=== PATIENT | male | born 1950 | race Two or more races ===

== ENCOUNTER 2024-12-03 10:49 | Emergency (ER) | payer MEDICARE, BC, SELFPAY ==
[2024-12-03] VITALS (8 sets, daily range): BP systolic 86–176; BP diastolic 13–85; BMI 23.8
[2024-12-03 11:29] LABS: % Basophils 0.3 % (0-2); % Eosinophils 2.1 % (0-6); % Immature Granulocytes 0.5 % (0-0.5); % Lymphocytes 22.6 % (20.5-51.1); % Monocytes 6.4 % (1.7-9.3); % Neutrophils 68.1 % (42.2-75.2); Absolute Eosinophils 0.1 10^3/uL (0-0.7); Absolute Lymphocytes 1.3 10^3/uL (1.2-3.4); Absolute Monocytes 0.4 10^3/uL (0.1-0.6); Absolute Neutrophils 3.9 10^3/uL (1.4-6.5); Hematocrit 35.1 % (39.0-52.0); Hemoglobin 11.4 g/dL (13.0-18.0); Mean Corp Hgb Conc. 32.5 g/dL (33.0-37.0); Mean Corpuscular Hgb 23.5 pg (27.0-31.0); Mean Corpuscular Volume 72.2 fL (80.0-94.0); Nucleated Red Blood Cells % 0 % (-); Platelet Count 140 10^3/uL (130-400); Red Blood Cell Count 4.86 10^6/uL (4.70-6.10); Red Cell Dist. Width 17.8 % (11.5-14.5); White Blood Cell Count 5.8 10^3/uL (4.8-10.8)
[2024-12-03 11:47] LABS: Alkaline Phosphatase 79 U/L (38-126); Blood Urea Nitrogen 19 mg/dl (9-20); Calcium 9.1 mg/dl (8.4-10.2); Carbon Dioxide 24 mmol/L (22-30); Chloride 101 mmol/L (98-107); Glucose 213 mg/dl (70-99); Potassium 3.7 mmol/L (3.5-5.1); Sodium 134 mmol/L (135-145); eGFR > 60.00
[2024-12-03 11:48] LABS: ALT (SGPT) 23 U/L (0-50); AST (SGOT) 20 U/L (17-59); Albumin 4.1 g/dl (3.5-5.0); Total Bilirubin 0.9 mg/dl (0.2-1.3); Total Protein 6.8 g/dl (6.3-8.2)
[2024-12-03 12:09] LABS: Troponin I < 0.012 ng/ml
[2024-12-03 12:27] LABS: Lipase 469 U/L (23-300)
--- NOTE | 2024-12-03 12:30 | ED.GENMED ---
History of Present Illness
<Bernice Russell PRINCIPAL TRAINER - Last Filed: 12/04/24 18:39>
General
Chief Complaint: Breathing Problem
Source: patient
Exam Limitations: none
Time Seen by Provider: 12/03/24 12:11
Nursing documentation reviewed up to this point in time: agreed with except (Patient is not here for a breathing problem he is here because he has been pain across his upper abdomen, when it was worse earlier this morning he felt short of breath,
this has completely subsided)
History of Present Illness
History of Present Illness:
74 yo male with h/o HLD, NIDDM, Moy[place] surgery 2015 and 2016 presents for pain across upper abdomen. Pain started gradually at 9 a.m. while in latter-day, was belching 'a lot' to the point he was embarrassed. [place] nauseous but no vomiting. Pain was
05/05 from latter-day and all the way home. Took something like Staci Dundee with some relief. Pain now /10. Denies fever, diarrhea or constipation.
He did eat dinner out last night and had a 'big rib eye steak.'
Review of Systems
<Bernice Russell PRINCIPAL TRAINER - Last Filed: 12/04/24 18:39>
Review of Systems
Allergies reviewed?: Yes
All Other Systems: ROS reviewed and negative except as documented in HPI and ROS
Constitutional: Denies fever
Respiratory: Denies trouble breathing
Cardiac: Denies chest pain
ABD/GI: Reports abdominal pain and nausea (belching ); Denies vomiting, diarrhea or anorexia
: Denies dysuria, frequency or difficulty voiding
Musculoskeletal: Reports no symptoms
Skin: Reports no symptoms
Neurological: Reports no symptoms
Phy Exam
<Bernice Russell, PRINCIPAL TRAINER - Last Filed: 12/04/24 18:39>
Physical Exam
Physical Exam:
GENERAL: No acute distress. A&Ox3.
CONSTITUTIONAL: Afebrile.
EYES: clear, conjunctivae normal
ENMT: moist mucus membranes
RESPIRATORY: Regular respirations, nonlabored, lungs clear.
CARDIOVASCULAR: Regular rate and rhythm, no murmurs, no rubs.
GI: Soft, mild tenderness mid to right upper abdomen. Nondistended. Normal BS
MUSCULOSKELETAL: Moves with ease. Well perfused.
SKIN: Warm, dry, normal
PSYCH: Normal mood and affect. Well kept, interactive and appropriate
NEUROLOGIC: Awake, alert and oriented. No focal neurological deficits
Scores
<Carlos Manuel Fonseca PA-C - Last Filed: 12/03/24 20:30>
Heart Failure Risk
Heart Failure Risk Score: Not Applicable
Course
<Bernice Russell PRINCIPAL TRAINER - Last Filed: 12/04/24 18:39>
Orders/Labs/Results
Orders:
Orders
12/03/24 10:51
EKG [Electrocardiogram (*1)] Urgent
Reason for Study: Shortness of Breath
EKG- Treatment ONCE
12/03/24 11:06
Complete Blood Count/With Diff Urgent
Comprehensive Metabolic Panel Urgent
Lipase Urgent
NT-proBNP Urgent
Comment: ADD ON
Troponin I Urgent
12/03/24 12:02
Add On- LAB Urgent
Tests Added?: Pro-BNP
12/03/24 12:29
US Abdomen Complete/Upper Urgent
Comment:
Reason For Exam: pain across upper abdomen mild elevat lipase
12/03/24 13:37
0.9% Sodium Chloride 1000 ml [Nss] 1,000 ml IV BOLUS
12/03/24 13:40
Iohexol [Omnipaque] See Protocol PO NOW STA
12/03/24 13:41
CT Abd/pel W Iv And Oral Contr Urgent
Comment:
Reason For Exam: pain across upper abdomen
Abnormal Lab Results
12/03/24
11:06
Hgb 11.4 L g/dL
(13.0-18.0)
Hct 35.1 L %
(39.0-52.0)
MCV 72.2 L fL
(80.0-94.0)
MCH 23.5 L pg
(27.0-31.0)
MCHC 32.5 L g/dL
(33.0-37.0)
RDW 17.8 H %
(11.5-14.5)
Sodium 134 L mmol/L
(135-145)
Glucose 213 H mg/dl
(70-99)
Lipase 469 H U/L
(23-300)
12/03/24 11:06
12/03/24 11:06
Vital Signs
Initial and Last Documented VS:
Initial Vital Signs
Temp Pulse Resp BP Pulse Ox
97.6 F 58 16 176/76 100
12/03/24 10:58 12/03/24 10:58 12/03/24 10:58 12/03/24 10:58 12/03/24 10:58
Last Documented Vital Signs
Temp Pulse Resp BP Pulse Ox
97.8 F 86 20 131/85 99
12/03/24 12:02 12/03/24 18:33 12/03/24 18:33 12/03/24 18:33 12/03/24 18:33
<Carlos Manuel Fonseca PA-C - Last Filed: 12/03/24 20:30>
Orders/Labs/Results
Orders:
Orders
12/03/24 10:51
EKG [Electrocardiogram (*1)] Urgent
Reason for Study: Shortness of Breath
EKG- Treatment ONCE
12/03/24 11:06
Complete Blood Count/With Diff Urgent
Comprehensive Metabolic Panel Urgent
Lipase Urgent
NT-proBNP Urgent
Comment: ADD ON
Troponin I Urgent
12/03/24 12:02
Add On- LAB Urgent
Tests Added?: Pro-BNP
12/03/24 12:29
US Abdomen Complete/Upper Urgent
Comment:
Reason For Exam: pain across upper abdomen mild elevat lipase
12/03/24 13:37
0.9% Sodium Chloride 1000 ml [Nss] 1,000 ml IV BOLUS
12/03/24 13:40
Iohexol [Omnipaque] See Protocol PO NOW STA
12/03/24 13:41
CT Abd/pel W Iv And Oral Contr Urgent
Comment:
Reason For Exam: pain across upper abdomen
Abnormal Lab Results
12/03/24
11:06
Hgb 11.4 L g/dL
(13.0-18.0)
Hct 35.1 L %
(39.0-52.0)
MCV 72.2 L fL
(80.0-94.0)
MCH 23.5 L pg
(27.0-31.0)
MCHC 32.5 L g/dL
(33.0-37.0)
RDW 17.8 H %
(11.5-14.5)
Sodium 134 L mmol/L
(135-145)
Glucose 213 H mg/dl
(70-99)
Lipase 469 H U/L
(23-300)
12/03/24 11:06
12/03/24 11:06
Vital Signs
Initial and Last Documented VS:
Initial Vital Signs
Temp Pulse Resp BP Pulse Ox
97.6 F 58 16 176/76 100
12/03/24 10:58 12/03/24 10:58 12/03/24 10:58 12/03/24 10:58 12/03/24 10:58
Last Documented Vital Signs
Temp Pulse Resp BP Pulse Ox
97.8 F 86 20 131/85 99
12/03/24 12:02 12/03/24 18:33 12/03/24 18:33 12/03/24 18:33 12/03/24 18:33
<Bernice Russell, PRINCIPAL TRAINER - Last Filed: 12/04/24 18:39>
MDM/Problems Addressed
MDM/Problems Addressed:
74 yo male with h/o HLD, NIDDM, Moy[place] surgery 2015 and 2016 presents for pain across upper abdomen. Pain started gradually at 9 a.m. while in latter-day, was belching 'a lot' to the point he was embarrassed. [place] nauseous but no vomiting. Pain was
8/10 from latter-day and all the way home. Took something like Staci Dundee with some relief. Pain now 2/10. Denies fever, diarrhea or constipation. He did eat dinner out last night and had a 'big rib eye steak.'
Afebrile, NAD
1:00 p.m.
CBC: No clinically significant abnormality. Mild anemia indices indicate chronic element
CMP: No clinically significant abnormality
Troponin normal
Lipase mildly elevated at 469
<Bernice Russell, PRINCIPAL TRAINER - Last Filed: 12/04/24 18:39>
*EKG
EKG Intrepretation Date: 12/03/24
Interpretation: normal
Heart Rate: 61
Rate: normal
Rhythm: sinus and sinus arrhythmia
[place]: normal axis
Interval: normal interval
QRS Pattern: normal QRS
Ischemia: no ischemia
<Carlos Manuel Fonseca PA-C - Last Filed: 12/03/24 20:30>
*Critical Care Note
Total Time (30-74mins, 75-104mins- exclusive of procedures): Not Applicable
<Carlos Manuel Fonseca PA-C - Last Filed: 12/03/24 20:30>
Update Note
Update Note:
1604: Care assumed from MARIO Guevara pending CT. Pt with upper abd pain since this AM. Labs unremarkable with exception of mild lipase elevation; US unremarkable.
1807: Reviewed CT findings with the patient. Unclear etiology to ileus however the patient's p.o. contrasted clearly past the area so there is no evidence for obstruction. His pain is well-controlled at this time stable. Recommend clear liquid
diet for 48 hours followed by full liquids and progress to normal from there. Discussed ED return parameters
ED Attending Note
<Bernice Russell NP - Last Filed: 12/04/24 18:39>
-
Portions of this chart may have been created with voice recognition software.� Occasional wrong word or��sound alike� substitutions may have occurred due to the inherent limitations of voice recognition software.
Discharge Plan
Departure
Patient Disposition: Home (Routine Discharge)
Date of Disposition: 12/03/24
Time of Disposition: 18:10
Patient with high blood pressure during this ER visit?: No
Discharge Problem:
Ileus
Instructions: Intestinal Pseudo-obstruction (DC), Full liquid diet, Clear Liquid Diet
Prescriptions:
No Action
metformin 1,000 mg Tablet
1,000 mg PO BID
aspirin 81 mg Tablet,Delayed Release (Dr/Ec)
81 mg PO DAILY
zinc sulfate 50 mg zinc (220 mg) Tablet
50 mg PO DAILY
ascorbic acid (vitamin C) [Vitamin C] 500 mg Tablet
500 mg PO DAILY
glipizide 2.5 mg Tablet Extended Release 24hr
2.5 mg PO DAILY
folic acid 1 mg Tablet
1 mg PO DAILY
lisinopril 2.5 mg Tablet
2.5 mg PO DAILY
rosuvastatin [Crestor] 40 mg Tablet
40 mg PO DAILY
cholecalciferol (vitamin D3) [Vitamin D3] 25 mcg (1,000 unit) Tablet
25 mcg PO DAILY
Januvia 100 mg Tablet
100 mg PO DAILY
coQ10 (ubiquinol) 100 mg Capsule
100 mg PO DAILY
magnesium oxide 400 mg magnesium Tablet
400 mg PO DAILY
dapagliflozin propanediol [Farxiga] 10 mg Tablet
10 mg PO DAILY
Referrals:
Mainor Escamilla MD [Family Provider] -
Activity Restrictions/Additional Instructions:
Clear liquids for 48 hours followed by full liquids for 24 hours, if improving symptomatically you may return to normal diet thereafter
Interventions
Interventions:
*Risk Screen - Suicide Last Done: 12/03/24 10:58
*General Assessment Last Done: 12/03/24 10:58
*Neglect/Abuse Screening Last Done: 12/03/24 12:02
*ED- Fall Risk Assessment Last Done: 12/03/24 12:02
*ED COVID-19 Vaccine History Last Done: 12/03/24 10:58
*Nursing Disposition Last Done: 12/03/24 18:33
ED- Cardiac Assessment Last Done: 12/03/24 12:02
ED- Pulmonary Assessment Last Done: 12/03/24 12:02
Discharge Date and Time
Discharge Date/Time: 12/03/24 18:43
Print Language: PORTUGUESE
[2024-12-03 12:58] LABS: NT-proBNP 83.6 pg/ml
[2024-12-03] MEDS: OMNIPAQUE 50 ML PO (14:36)
[2024-12-03] MEDS: NSS 1000 IV (14:38)
== END 2024-12-03 18:43 | disposition home or self-care (01) ==
LOC: EMR 10:49
PROVIDERS: EMERGENCY PHYSICIAN Emergency Medicine; FAMILY PHYSICIAN Internal Medicine
DX: K56.7 Ileus, unspecified (principal); E11.9 Type 2 diabetes mellitus without complications; E78.5 Hyperlipidemia, unspecified; D64.9 Anemia, unspecified; I49.8 Other specified cardiac arrhythmias
CPT/HCPCS: 99284; 96360; 74177; 76700; 80053; 83690; 83880; 84484; 85025; 93005; Q9967

== ENCOUNTER → 2025-01-08 07:40 | Outpatient (REF) | payer MEDICARE, BC, SELFPAY | LOC: RAD 07:40 | PROVIDERS: ATTENDING PHYSICIAN Internal Medicine | DX: K81.1 Chronic cholecystitis (principal) | CPT/HCPCS: 78226; A9537 ==

== ENCOUNTER 2025-03-08 15:55 | Inpatient (IN) | payer MEDICARE, BC, SELFPAY ==
[2025-03-08] VITALS (11 sets, daily range): BP systolic 103–135; BP diastolic 55–84; BMI 24.6; BMI 23.6
--- NOTE | 2025-03-08 11:03 | ED.GENMED ---
History of Present Illness
General
Chief Complaint: Abdominal Pain
Source: patient
Exam Limitations: none
Time Seen by Provider: 03/08/25 10:55
Nursing documentation reviewed up to this point in time: agreed with
History of Present Illness
History of Present Illness:
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 It waxes and wanes. He
has been having small bowel movements daily. Right now the pain is 5/10 and across his mid abdomen seemingly worse in the right lower quadrant. He was sent here from his PCP office to rule out appendicitis. He denies fever or chills. He denies
nausea or vomiting.
Past History
Past History
ED Past Medical History: Hypercholesterolemia, NIDDM and Other (TIA, thrombocytopenia, hyponatremia)
ED Past Surgical History: Orthopedic
Social History
Tobacco: Non-smoker
Alcohol: None
Personal:
Living: with family
Review of Systems
Review of Systems
Allergies reviewed?: Yes
All Other Systems: ROS reviewed and negative except as documented in HPI and ROS
Constitutional: Denies fever
Respiratory: Denies trouble breathing
Cardiac: Denies chest pain
ABD/GI: Reports abdominal pain; Denies nausea, vomiting, diarrhea, bloody stools, black stools or anorexia
: Denies dysuria or difficulty voiding
Musculoskeletal: Reports no symptoms
Skin: Reports no symptoms
Neurological: Reports no symptoms
Phy Exam
Physical Exam
Physical Exam:
GENERAL: No acute distress. A&Ox3.
CONSTITUTIONAL: Afebrile.
EYES: clear, conjunctivae normal
ENMT: moist mucus membranes, Pharynx nl
RESPIRATORY: Regular respirations, nonlabored, lungs clear.
CARDIOVASCULAR: Regular rate and rhythm, no murmurs, no rubs.
GI: Soft, Tender mid abdomen to right lower quadrant. Hypoactive BS
MUSCULOSKELETAL: Moves with ease. Well perfused.
SKIN: Warm, dry, normal
PSYCH: Normal mood and affect. Well kept, interactive and appropriate
NEUROLOGIC: Awake, alert and oriented. No focal neurological deficits
Course
Orders/Labs/Results
Orders:
Orders
03/08/25 11:10
CT Abd/pel W Iv And Oral Contr Urgent
Comment:
Reason For Exam: bloating, pain RLQ
Iohexol [Omnipaque] See Protocol PO NOW STA
03/08/25 11:11
0.9% Sodium Chloride 1000 ml [Nss] 1,000 ml IV BOLUS
03/08/25 11:35
Complete Blood Count/With Diff Urgent
Comprehensive Metabolic Panel Urgent
Lipase Urgent
03/08/25 13:19
Urinalysis Urgent
Date Specimen was Collected: 03/08/25
Time Specimen was Collected: 13:15
Urine Microscopic Urgent
Date Specimen was Collected: 03/08/25
Time Specimen was Collected: 13:15
03/08/25 15:10
Consult Surgery [SURGICAL CONSULT] Urgent
Consulting Provider: Carlos Rashid
Was physician already notified: Yes
Reason for consult: appendicitis
03/08/25 15:38
Admit/Transfer Patient As Directed
Co-Sign Provider:
Level of Care: Inpatient admission
Assign to:: Medical/Surgical
Physician / Group: jesus
Diagnosis: appendicitis
Reason for Hospitalization: appendicitis
Expected length of stay greater than two midnights?: Yes
ELOS- Estimated Length of Stay in days: 3
I certify the patient meets the requirements for IP care: Yes
PRN Pain Medication Management As Directed
May give lesser potent ordered pain med per pt: Yes
preference::
Protocol:: Medication orders for pain may be administered in a
manner that supports deferring to patient preference
when the pt is:
- Requesting an ordered lesser potent pain medication.
Least to most potent pain medications are defined
as: acetaminophen < NSAID < tramadol < opioids
(morphine, oxycodone, hydromorphone).
- Requesting a lesser dose of the same medication IF
ORDERED.
- Requesting a less intrusive route of administration
if both routes are prescribed by the provider (PO <
IV).
03/08/25 15:39
Code Status As Directed
Resuscitation Status: Full Code
03/08/25 15:41
Piperacillin/Tazo 3.375 Gram [Zosyn] 3.375 gram in 50 ml IV NOW
03/08/25 15:44
Cefepime HCl [Maxipime] 2,000 mg IV NOW STA
03/08/25 15:45
MetroNIDAZOLE 500 MG/100 ML [Flagyl 500 mg] 100 ml IV NOW
03/08/25 15:47
Sterile Water [Sterile Water For Injection] 10 ml IV STAT STA
03/08/25 16:54
0.9% Sodium Chloride 1000 ml [Nss] 1,000 ml IV 100 mls/hr
Acetaminophen [Tylenol] 650 mg PO Q4HPRN PRN
Bisacodyl [Dulcolax] 10 mg RECTAL [id number] PRN
Dextrose 50%-Water [Dextrose 50% Syringe] 12.5 grams IV [id number] PRN
Docusate W/Senna [Senokot-S] 1 tablet PO BIDPRN PRN
Glucagon [GlucaGen] 1 mg IM PRN PRN
HYDROmorphone [Dilaudid] 0.5 mg IV Q4HPRN PRN
Insulin Aspart Corrective Low [Novolog Flexpen-Low Resistance] See Protocol SC AC
Piperacillin/Tazo 3.375 Gram [Zosyn] 3.375 gram in 50 ml IV Q6H
Polyethylene Glycol Powder [Miralax] 17 grams PO DAILYPRN PRN
03/08/25 16:54
Activity As Directed
Activity Level: As Tolerated
Bedside Glucose Monitoring As Directed
Frequency: AC&HS
Additional Instructions:: Change to q6h if pt on TPN, tube feeding or not eating
Vital Signs As Directed
Frequency: Per unit guidelines
DX Deep Vein Thrombosis Video Routine
03/08/25 18:00
Enoxaparin Sodium [Lovenox] 40 mg SC QPM
03/08/25 22:00
Cefepime HCl [Maxipime] 1,000 mg IV Q6H
03/09/25 00:00
MetroNIDAZOLE 500 MG/100 ML [Flagyl 500 mg] 100 ml IV Q8H
03/09/25 Breakfast
NPO
Allow oral meds: Yes
Allow clear liquids: No
Complete Blood Count/No Diff IN AM
Glycohemoglobin (HgbA1c) IN AM
03/09/25 08:00
Aspirin Low Dose EC [Aspir Low (Enteric Coated)] 81 mg PO DAILY
Lisinopril [Zestril] 2.5 mg PO DAILY
Rosuvastatin Calcium [Crestor] 40 mg PO DAILY
03/10/25 06:00
Complete Blood Count/No Diff IN AM
03/11/25 06:00
Complete Blood Count/No Diff IN AM
Abnormal Lab Results
03/08/25 03/08/25
11:35 13:19
Hgb 11.2 L g/dL
(13.0-18.0)
Hct 34.5 L %
(39.0-52.0)
MCV 71.6 L fL
(80.0-94.0)
MCH 23.2 L pg
(27.0-31.0)
MCHC 32.5 L g/dL
(33.0-37.0)
RDW 17.8 H %
(11.5-14.5)
BUN 22 H mg/dl
(9-20)
Glucose 107 H mg/dl
(70-99)
Lipase 342 H U/L
(23-300)
Urine Occult Blood 2+ A
(Negative)
Urine Bacteria Few A
(Negative)
Urine Glucose 4+ A
(Negative)
03/08/25 11:35
03/08/25 11:35
Vital Signs
Initial and Last Documented VS:
Initial Vital Signs
Temp Pulse Resp BP Pulse Ox
97.6 F 73 18 135/61 100
03/08/25 10:39 03/08/25 10:39 03/08/25 10:39 03/08/25 10:39 03/08/25 10:39
Last Documented Vital Signs
Temp Pulse Resp BP Pulse Ox
97.7 F 65 17 133/65 99
03/08/25 17:00 03/08/25 17:00 03/08/25 17:00 03/08/25 17:00 03/08/25 17:00
MDM/Problems Addressed
Differential Diagnosis Includes:
Diverticulitis, appendicitis, cholecystitis, constipation
MDM/Problems Addressed:
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 It waxes and wanes. He
has been having small bowel movements daily. Right now the pain is 5/10 and across his mid abdomen seemingly worse in the right lower quadrant. He was sent here from his PCP office to rule out appendicitis. He denies fever or chills. He denies
nausea or vomiting.
CBC, CMP with no clinically significant abnormalities.
Lipase 342.
UA negative
3:00 PM:
Text from radiology: Acute appendicitis.
Hospitalist and general surgeon notified of admission
Pt comfortable, stable
*Critical Care Note
Total Time (30-74mins, 75-104mins- exclusive of procedures): Not Applicable
ED Attending Note
-
Portions of this chart may have been created with voice recognition software.� Occasional wrong word or��sound alike� substitutions may have occurred due to the inherent limitations of voice recognition software.
Discharge Plan
Departure
Patient Disposition: Admit
Date of Disposition: 03/08/25
Time of Disposition: 15:02
Admit to: Med/Surg
Presentation/result/management discussed w/ accepting MD/DO: Hospitalist
Condition: Good
Discharge Problem:
Acute appendicitis
Interventions
Interventions:
*Risk Screen - Suicide Last Done: 03/08/25 10:39
*General Assessment Last Done: 03/08/25 10:39
*Neglect/Abuse Screening Last Done: 03/08/25 10:39
*ED- Fall Risk Assessment Last Done: 03/08/25 11:22
*ED COVID-19 Vaccine History Last Done: 03/08/25 11:22
*Nursing Disposition Last Done: 03/08/25 16:53
HM-Tjrcum-Mavwddazij Assessment Last Done: 03/08/25 11:40
Discharge Date and Time
Discharge Date/Time: 03/08/25 16:55
[2025-03-08] MEDS: OMNIPAQUE 50 ML PO (11:28)
[2025-03-08] MEDS: NSS 1000 IV ×2 (11:28→21:09)
[2025-03-08 11:55] LABS: Hematocrit 34.5 % (39.0-52.0); Hemoglobin 11.2 g/dL (13.0-18.0); Mean Corp Hgb Conc. 32.5 g/dL (33.0-37.0); Mean Corpuscular Hgb 23.2 pg (27.0-31.0); Mean Corpuscular Volume 71.6 fL (80.0-94.0); Platelet Count 131 10^3/uL (130-400); Red Blood Cell Count 4.82 10^6/uL (4.70-6.10); Red Cell Dist. Width 17.8 % (11.5-14.5); White Blood Cell Count 4.9 10^3/uL (4.8-10.8)
[2025-03-08 11:56] LABS: % Basophils 0.4 % (0-2); % Eosinophils 2.2 % (0-6); % Immature Granulocytes 0.2 % (0-0.5); % Lymphocytes 24.9 % (20.5-51.1); % Monocytes 7.3 % (1.7-9.3); Absolute Eosinophils 0.1 10^3/uL (0-0.7); Absolute Lymphocytes 1.2 10^3/uL (1.2-3.4); Absolute Monocytes 0.4 10^3/uL (0.1-0.6); Absolute Neutrophils 3.2 10^3/uL (1.4-6.5); Nucleated Red Blood Cells % 0 % (-)
[2025-03-08 11:59] LABS: ALT (SGPT) 19 U/L (0-50); AST (SGOT) 20 U/L (17-59); Albumin 4.3 g/dl (3.5-5.0); Alkaline Phosphatase 47 U/L (38-126); Blood Urea Nitrogen 22 mg/dl (9-20); Calcium 9.9 mg/dl (8.4-10.2); Carbon Dioxide 27 mmol/L (22-30); Chloride 106 mmol/L (98-107); Estimated Creatinine Clearance 56 ml/min; Glucose 107 mg/dl (70-99); Lipase 342 U/L (23-300); Potassium 4.5 mmol/L (3.5-5.1); Sodium 141 mmol/L (135-145); Total Bilirubin 0.6 mg/dl (0.2-1.3); eGFR > 60.00
[2025-03-08 13:55] LABS: Urine Albumin Negative (Neg - Trace); Urine Bilirubin Negative (Negative); Urine Character Clear (Clear); Urine Color Yellow; Urine Glucose 4+ (Negative); Urine Ketone Negative (Negative); Urine Leukocyte Negative (Negative); Urine Nitrite Negative (Negative); Urine Occult Blood 2+ (Negative); Urine Urobilinogen Negative (Neg - 1+)
[2025-03-08 14:14] LABS: Urine Bacteria Few (Negative); Urine Red Blood Cell 0-2 /HPF (0-2); Urine White Cell 0-2 /HPF (0-5)
--- NOTE | 2025-03-08 15:13 | HPS.HSE ---
Family Physician
-
Family Physician: Mainor Escamilla
Chief Complaint
-
right sided abdominal pain
History of Present Illness
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 patient stated small
loose stool. denied nausea and vomiting. denied fever, chills, chest pain,sob. denied dysuria or hematuria.
Ct with the impression of findings highly suggestive of appendicitis. No evidence of abscess or free intraperitoneal air.Coronary artery calcifications are present. Please correlate with symptoms of and risk factors for coronary artery disease, with
further workup as clinically appropriate.Cholelithiasis. No findings to suggest acute cholecystitis. No evidence of biliary ductal dilation.Bony degenerative changes as described.
Patient was a normal saline in ER. Admitted for further manage
Medical History
Past Medical History
Past Medical History: Reports Other
Additional Past Medical History:
Type 2 diabetes
Hyperlipidemia
TIA
Gallstone without cholecystitis
Sleep apnea
Right bundle branch block
Thalassemia minor
Past Surgical History: Reports Other
Additional Past Surgical History:
Moyamoya surgery
Carpal tunnel surgery
Shoulder surgery
Social History
Tobacco: Non-smoker
Alcohol: None
Drug: None
Personal:
Living: With Family
Family History
Family History: Not pertinent
Allergies / Home Medications
Allergies reflects when Allergies were last updated in [facility].
Home Medications with original date entered in [facility]
Allergy/Medication List:
Allergies
Allergy/AdvReac Type Severity Reaction Status Date / Time
Penicillins Allergy tingling Verified 03/08/25 10:38
around the
mouth
Home Medications
ascorbic acid (vitamin C) 500 mg tablet (Vitamin C) 500 mg PO DAILY 12/03/24
aspirin 81 mg tablet,delayed release 81 mg PO DAILY 12/03/24
cholecalciferol (vitamin D3) 25 mcg (1,000 unit) tablet (Vitamin D3) 25 mcg PO DAILY 12/03/24
dapagliflozin propanediol 10 mg tablet (Farxiga) 10 mg PO DAILY 12/03/24
folic acid 1 mg tablet 1 mg PO DAILY 12/03/24
lisinopril 2.5 mg tablet 2.5 mg PO DAILY 12/03/24
magnesium oxide 400 mg PO DAILY 12/03/24
metformin 1,000 mg tablet 1,000 mg PO BID 12/03/24
rosuvastatin 40 mg tablet (Crestor) 40 mg PO DAILY 12/03/24
sitagliptin phosphate 100 mg tablet (Januvia) 100 mg PO DAILY 12/03/24
zinc sulfate 50 mg zinc (220 mg) tablet 50 mg PO DAILY 12/03/24
Review of Systems
-
Constitutional: Reports No Symptoms
EENT: Reports No Symptoms
Respiratory: Reports No Symptoms
Cardiac: Reports No Symptoms
Abdomen/GI: Reports Abdominal Pain
: Reports No Symptoms
Musculoskeletal: Reports No Symptoms
Skin: Reports No Symptoms
Neurological: Reports No Symptoms
Endocrine: Reports No Symptoms
Hematologic/Lymphatic: Reports No Symptoms
Psych: Reports No Symptoms
Physical Exam
Vital Signs
Vital Signs
Temp Pulse Resp BP Pulse Ox
97.5 F 70 21 122/64 100
03/08/25 14:20 03/08/25 14:20 03/08/25 14:20 03/08/25 14:20 03/08/25 14:20
Physical Exam
General: Well Developed, Well Nourished and No Apparent Distress
HEENT: NormoCephalic, Moist mucous membranes and Atraumatic
Respiratory: Clear
Cardiac: S1/S2 and Regular Rhythm; No Murmur or Rub
GI: Soft, Non Tender, Non Distended and Normal Bowel Sounds; No Organomegaly
Rectal: Deferred by Provider
Musculoskeletal: No Clubbing, No Cyanosis and No Edema
Skin: No Rash
Neuro: AO x 3 and Nonfocal/grossly intact
Psych: Calm
Laboratory Results
-
03/08/25 11:35
03/08/25 11:35
Laboratory Results
Total Bilirubin 0.6 mg/dl (0.2-1.3) 03/08/25 11:35
AST 20 U/L (17-59) 03/08/25 11:35
ALT 19 U/L (0-50) 03/08/25 11:35
Alkaline Phosphatase 47 U/L (38-126) 03/08/25 11:35
Lipase 342 U/L (23-300) H 03/08/25 11:35
Data Reviewed
-
CT Scan: Report Reviewed by me
Lab Data: Labs Reviewed by me
Impression/Plan
-
# Acute appendicitis
- Patient n.p.o.
-IV cefepime and flagyl
-Fluids continued for hydration
- Surgery consulted
- CT abdomen pelvis with impression CT findings highly suggestive of appendicitis. No evidence of abscess or free intraperitoneal air.Coronary artery calcifications are present. Please correlate with symptoms of and risk factors for coronary artery
disease, with further workup as clinically appropriate.Cholelithiasis. No findings to suggest acute cholecystitis. No evidence of biliary ductal dilation.Bony degenerative changes as described.
# Type II diabetes
- Hold Farxiga and metformin and Januvia
- Sliding scale
# Essential hypertension
- Lisinopril continue with hold parameters
# Hyperlipidemia
- Crestor continued
# History of TIA
- Aspirin continued
# History of thrombocytopenia
# History of gallstone without a cholecystitis
# History of sleep apnea
- CPAP continued
# Anemia of chronic disease
- Hemoglobin stable 11.2
- No active bleeding
- Continue to monitor
# DVT prophylaxis
- Lovenox subcu
# CODE STATUS
- Full code
--- NOTE | 2025-03-08 15:44 | W.PN.UPDATE ---
Update Note
Progress Note Update
This is an addendum to H&P written by she was 03/08/2025. Patient seen and examined independently with MACHINERY MECH[employer]IC.
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
bloating and pain starting 3 days ago. Slightly worse in the right lower quadrant.
Vital signs normal.
CT abdomen pelvis highly suggestive of acute appendicitis.
Labs unremarkable.
NPO. IV fluids. Dilaudid/Zofran as needed. Cefepime/Flagyl. General surgery consulted.
ISS in place of oral diabetic medications.
[2025-03-08] MEDS: STERILE WATER FOR INJECTION 10 ML IV ×2 (15:57→23:06)
[2025-03-08] MEDS: MAXIPIME 2000 MG IV (15:57)
[2025-03-08] MEDS: FLAGYL 500 MG 100 IV (16:08)
--- NOTE | 2025-03-08 16:21 | CM ---
CM reviewed chart and met with pt and his bedside in ED. Lives with , multistory home, [address], BA on first floor.
Independent [employer], no DME, no hx VN or SNF.
PCP: Mainor Escamilla
Pharmacy: [facility] in [place]
Plan: Anticipate dc home, watch for needs.
--- NOTE | 2025-03-08 16:42 | CON.GS ---
Addendum entered and electronically signed by Carlos Rashid MD 03/08/25 18:38:
Patient seen and examined with surgical DIE TRIMMER. Agree with documented consultation consistent with my simultaneous examination evaluation.
HPI: 75-year-old male with multiple medical comorbidities who presents with a 3-day history of abdominal pain initially in the periumbilical and lower abdominal region which has recently begun to localize towards the right lower quadrant. He saw
his primary care for evaluation today and was referred for emergency department due to suspicion for acute appendicitis. No nausea or vomiting but he has anorexia. He has had loose stools today but was constipated recently.
He had an evaluation for upper abdominal pain this past November was switched negative for any acute intra-abdominal pathology. Pain was different than this presentation.
PMH/PSH as outlined below
AFVSS
NAD AAO x 3
ABD: Soft, nondistended, tenderness palpation localized in right lower quadrant with voluntary guarding at McBurney's point.
CT imaging reviewed. Proximal appendix opacifies with contrast but the distal appendix does not. Distended appendix with mild stranding suggestive of acute appendicitis.
Assessment: 75-year-old male with acute appendicitis.
Reviewed with patient and his at bedside history, examination and CT imaging consistent with acute appendicitis. Discussed both operative and nonoperative management options and associated risks/benefits of approaches. Patient is in agreement
to proceed with appendectomy.
Laparoscopic appendectomy reviewed in detail with the patient. Discussed operative technique, alternative management options, benefits and potential risks such as but not limited to bleeding, infectious or wound healing complications, iatrogenic
injury to surrounding viscera. Discussed the typical postoperative recovery pending operative findings.
Any of the patient's concerns or questions were fully addressed and informed consent was obtained.
Plan: OR for laparoscopic appendectomy.
Empiric antibiotic coverage with cefepime Flagyl.
Nothing by mouth, IV fluid hydration and supportive care awaiting operative room availability.
SCDs for DVT prophylaxis
Original Note:
Consultation
-
Date/Time Consultation Requested: 03/08/25 1510
Date/Time Consultation Performed: 03/08/25 1605
Requesting Provider: Day
Performing Provider: Jesus Rashid
Medical History
-
Chief Complaint: ABD pain
History of Present Illness:
Mr Andersen is a 75 yo male with a h/o moyamoya syndrome tx with surgery x2, DM and sleep apnea presenting with RLQ aching pain which began roughly three days ago initially generalized to the lower abdomen below the umbilicus and now localized to the
RLQ. He was recently evaluated in the ED in November for upper abdominal pain with noted gastroenteritis and cholelithiasis without cholecystitis on CT imaging at that time. He had a normal HIDA scan in follow up as an outpatient. He notes this pain is
lower than this previous visit and more severe. He denies fevers or chills. He has been intermittently constipated but did have a loose stool in the ED today. He denies nausea or vomiting but has had a poor appetite today. He had toast for breakfast
but nothing since. He saw his PCP in evaluation and was referred to the ED for evaluation. On exam, he is markedly tender to the RLQ.
Past Medical History
Past Medical History: NIDDM and Other (Sleep apnea with cpap, Moyamoya syndrome, ?thalassemia minor)
Past Surgical History: Orthopedic (BL Carpal tunnel release, right rotator cuff repair) and Other (Aneurysm clips at [facility] for Moyamoya 2015, 2016 (Ben hole utilized))
Social History
Tobacco: Non-Smoker
Alcohol: None
Personal:
Living: With Family
Employment: Retired
Family History
Family History: Reviewed & Not Pertinent
Allergies / Home Medications
Allergy/AdvReac Type Severity Reaction Status Date / Time
Penicillins Allergy tingling Verified 03/08/25 10:38
around the
mouth
�Medication �Instructions �Recorded �Confirmed �Type
ascorbic acid (vitamin C) 500 mg 500 mg PO DAILY 12/03/24 03/08/25 History
tablet (Vitamin C)
aspirin 81 mg tablet,delayed 81 mg PO DAILY 12/03/24 03/08/25 History
release
cholecalciferol (vitamin D3) 25 25 mcg PO DAILY 12/03/24 03/08/25 History
mcg (1,000 unit) tablet (Vitamin
D3)
dapagliflozin propanediol 10 mg 10 mg PO DAILY 12/03/24 03/08/25 History
tablet (Farxiga)
folic acid 1 mg tablet 1 mg PO DAILY 12/03/24 03/08/25 History
lisinopril 2.5 mg tablet 2.5 mg PO DAILY 12/03/24 03/08/25 History
magnesium oxide 400 mg PO DAILY 12/03/24 03/08/25 History
metformin 1,000 mg tablet 1,000 mg PO BID 12/03/24 03/08/25 History
rosuvastatin 40 mg tablet (Crestor) 40 mg PO DAILY 12/03/24 03/08/25 History
sitagliptin phosphate 100 mg 100 mg PO DAILY 12/03/24 03/08/25 History
tablet (Januvia)
zinc sulfate 50 mg zinc (220 mg) 50 mg PO DAILY 12/03/24 03/08/25 History
tablet
Review of Systems
-
History Source: Patient and Family (spouse at bedside)
A 10 point review of systems was completed, and was negative except as per HPI.
Physical Exam
Vital Signs
Temp Pulse Resp BP Pulse Ox
97.5 F 70 21 122/64 100
03/08/25 14:20 03/08/25 14:20 03/08/25 14:20 03/08/25 14:20 03/08/25 14:20
03/07/25 03/08/25 03/09/25
06:59 06:59 06:59
Actual Weight 71.2 kg
Body Mass Index (BMI) 24.6
Lab Results
03/08/25 11:35
03/08/25 11:35
WBC 4.9 10^3/uL (4.8-10.8) 03/08/25 11:35
Hgb 11.2 g/dL (13.0-18.0) L 03/08/25 11:35
Hct 34.5 % (39.0-52.0) L 03/08/25 11:35
Plt Count 131 10^3/uL (130-400) 03/08/25 11:35
Abs Immat Gran (auto) 0.0 10^3/uL (0-0.05) 03/08/25 11:35
Neutrophils % 65.0 % (42.2-75.2) 03/08/25 11:35
Physical Exam
General: Well Developed and Well Nourished
HEENT: Moist Mucous Membranes
Respiratory: Non Labored Respirations
GI: Soft, Non Distended and Tender (RLQ with guarding)
Skin: Warm
Neuro: Awake, Alert and AO x 3
Psych: Calm
Data Reviewed
-
CT Scan: Image Personally Visualized and interpreted, Report Reviewed by me, Discussed with Physician, Discussed with Patient and Discussed with Family
Labs: Labs Reviewed by me, Discussed with Physician, Discussed with Patient and Discussed with Family
Old Records: Reviewed
Assessment / Plan
-
75 yo male with a h/o Moyamoya tx with surgery x2, KARIS with cpap and DM who presents with abdominal pain which localized to the RLQ over the past several days without n/v/f/c. He has noted tenderness on exam with CT imaging demonstrating concern for
acute appendicitis with increased size of the appendix from prior scan in November,. Exam consistent with acute appendicitis as well. No leukocytosis. Afebrile, VSS.
Plan:
Admitted to hospitalist service
Keep NPO for OR
Patient received cefepime and flagyl in the ED
Will plan laparoscopic appendectomy in the OR later today
SCDs for VTE ppx
--- NOTE | 2025-03-08 17:27 | PTCARENOTE ---
Pt arrived to 2S via stretcher, ambulated to bed independently, gait steady. Full assessment completed. IV abx completed, capped. Pt for OR, report given to Kendra LAY OUT MAKER. Pt voided upon admission to floor. Surgical bath completed, SCDs applied. Pt
transported to OR via NSG staff. Care remains ongoing.
[2025-03-08 17:52] LABS: Glucose - Point of Care 88 mg/dl (70-99)
--- NOTE | 2025-03-08 18:29 | W.SUR.PREOP ---
Pre-Operative Surgical Note
-
I have examined this patient prior to the performance of the scheduled procedure.
The patient's condition is unchanged from the time of the current History and
Physical and the patient is able to undergo the scheduled procedure.
--- NOTE | 2025-03-08 19:37 | W.IMMPOSTOP ---
Addendum entered and electronically signed by Carlos Rashid MD 03/08/25 19:45:
#[id number]
Original Note:
Surgical Immed Post Op Note
-
Primary Surgeon: Carlos Rashid MD
Assisting Surgeon: None
Pre-op Diagnosis: Acute appendicitis
Post-op Diagnosis: Acute appendicitis
Procedure Performed: Laparoscopic appendectomy
Anesthesia Type: GETA +0.25% Marcaine
Specimen / Cultures: Appendix
Estimated Blood Loss: 6 mL
Complications: None immediate
Operative Findings: Indurated and distended appendix with mild acute inflammatory changes. Base of the appendix, cecum and terminal ileum normal. Appendectomy completed without disruption of appendix. No purulence, no ascites or free fluid.
Cursory inspection of the abdomen otherwise unremarkable.
Updated patient's postoperatively via phone call.
[2025-03-08 19:56] LABS: Glucose - Point of Care 113 mg/dl (70-99)
[2025-03-08 21:25] LABS: Glucose - Point of Care 131 mg/dl (70-99)
[2025-03-08] MEDS: NOVOLOG FLEXPEN-LOW RESISTANCE SC (22:24)
[2025-03-08] MEDS: MAXIPIME 1000 MG IV (23:06)
[2025-03-09] MEDS: FLAGYL 500 MG 100 IV ×2 (00:23→08:35)
[2025-03-09] MEDS: STERILE WATER FOR INJECTION 10 ML IV (05:07)
[2025-03-09] MEDS: MAXIPIME 1000 MG IV (05:07)
[2025-03-09 06:47] LABS: Hematocrit 34.1 % (39.0-52.0); Mean Corp Hgb Conc. 32.3 g/dL (33.0-37.0); Mean Corpuscular Hgb 23.5 pg (27.0-31.0); Mean Corpuscular Volume 72.7 fL (80.0-94.0); Platelet Count 115 10^3/uL (130-400); Red Blood Cell Count 4.69 10^6/uL (4.70-6.10); Red Cell Dist. Width 17.8 % (11.5-14.5); White Blood Cell Count 4.8 10^3/uL (4.8-10.8)
[2025-03-09 07:00] VITALS: BP 107/53
[2025-03-09 07:45] LABS: Glucose - Point of Care 198 mg/dl (70-99)
[2025-03-09] MEDS: NOVOLOG FLEXPEN-LOW RESISTANCE 1 UNITS SC (08:33)
[2025-03-09] MEDS: ASPIR LOW (ENTERIC COATED) 81 MG PO (08:34)
[2025-03-09] MEDS: CRESTOR 40 MG PO (08:34)
[2025-03-09] MEDS: ZESTRIL 2.5 MG PO (08:34)
--- NOTE | 2025-03-09 08:46 | W.PN.GS2 ---
Today's Communication / Plan
-
`
Assessment / Plan
-
Assessment/plan: 75-year-old male POD #1 status post laparoscopic appendectomy for acute appendicitis
AFVSS
Doing well postop
Postop antibiotics discontinued -uncomplicated acute appendicitis no further role for antibiotics on discharge.
Stable for discharge home
Surgical DC instructions reviewed and provided
Outpatient follow-up in 2 weeks
Subjective Data
-
Date of Service: March 09, 2025
Patient seen and examined.
Doing well postoperatively. at bedside.
Sitting up comfortably in chair
Tolerated breakfast
Minimal incisional pain
Objective Data
-
Intake and Output
03/08/25 03/09/25 03/10/25
06:59 06:59 06:59
Intake Total 2280 / 2280
Balance 2280 / 2280
Intake:
Oral fluids 960 / 960
IV fluids (Total) 1200 / 1200
Normosal 200 / 200
IV piggybacks 120 / 120
Other:
Number of approximated MODERATE 1
amounts of urine
Vital Signs
Temp Pulse Resp BP Pulse Ox
98.2 F 63 12 107/53 100
03/09/25 07:00 03/09/25 07:00 03/09/25 07:00 03/09/25 07:00 03/09/25 07:00
Lab Results
03/09/25 05:53
03/08/25 11:35
Calcium 9.9 mg/dl (8.4-10.2) 03/08/25 11:35
Total Bilirubin 0.6 mg/dl (0.2-1.3) 03/08/25 11:35
AST 20 U/L (17-59) 03/08/25 11:35
ALT 19 U/L (0-50) 03/08/25 11:35
Alkaline Phosphatase 47 U/L (38-126) 03/08/25 11:35
Total Protein 7.0 g/dl (6.3-8.2) 03/08/25 11:35
Albumin 4.3 g/dl (3.5-5.0) 03/08/25 11:35
Physical Exam
-
NAD AAO x 3
ABD: Soft, minimal incisional tenderness. Incisions with glue dressings.
[2025-03-09 09:58] LABS: Hepatitis C Antibody Negative (Negative)
[2025-03-09] MEDS: STERILE WATER FOR INJECTION IV (10:35)
--- NOTE | 2025-03-09 11:01 | CM ---
CM following re: discharge planning.
Reviewed pt's chart, met with pt and pt's spouse at bedside.
Pt is POD #1 status post laparoscopic appendectomy for acute appendicitis, doing well postop.
Discharge order noted. Both pt and his spouse are aware, expressed their agreement with discharge and pt's spouse stated she will transport her home,. IMM reviewed, placed on chart, pt has a copy
D/C plan: home with no after care VN needs. Spouse to transport.
--- NOTE | 2025-03-09 11:22 | W.PN.HOSP.TC ---
Today's Communication/Plan
-
Plan discharge home today
Assessment / Plan
Assessment / Plan
Impression:
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
bloating and pain starting 3 days ago. Slightly worse in the right lower quadrant.
CT abdomen pelvis shows highly suggestive acute appendicitis pending
Status post lap appendectomy, feeling well after surgery, plan to discharge home today.
Assessment/plan:
Acute appendicitis
- CT abdomen pelvis with impression CT findings highly suggestive of appendicitis. No evidence of abscess or free intraperitoneal air.Coronary artery calcifications are present. Please correlate with symptoms of and risk factors for coronary artery
disease, with further workup as clinically appropriate.Cholelithiasis. No findings to suggest acute cholecystitis. No evidence of biliary ductal dilation.Bony degenerative changes as described.
03/09
Status post laparoscopic appendectomy.
Plan discharge home today
Type II diabetes
- Hold Farxiga and metformin and Januvia
- Sliding scale
# Essential hypertension
- Lisinopril continue with hold parameters
# Hyperlipidemia
- Crestor continued
# History of TIA
- Aspirin continued
# History of thrombocytopenia
# History of gallstone without a cholecystitis
# History of sleep apnea
- CPAP continued
# Anemia of chronic disease
- Hemoglobin stable 11.2
- No active bleeding
- Continue to monitor
CODE STATUS: Full code
DVT prophylaxis: Lovenox
Diet: DM diet
Family communication: Discussed with at bedside.
Disposition: Plan discharge home today
Total time spent on today's encounter was 65 minutes which included time spent in counseling the patient/family regarding diagnosis and treatment plan as listed above, goals of care, and symptom management. Case was discussed with nursing staff,
specialists, and care coordinators/case management. All labs and imaging personally reviewed by me. Remainder the time spent in detailed review of previous records, lab data, imaging, and other medical provider documentation.
Anticipated Discharge: Today
Subjective/Interval History
-
Date of Service: March 09, 2025
Patient seen and examined at bedside, status post lap appendectomy yesterday,
Denies any chest pain or shortness of breath, no abdominal pain, no nausea, no vomiting.
Objective Data
-
Labs:
Laboratory Results
03/09/25
05:53
WBC 4.8
Hgb 11.0 L
Hct 34.1 L
Plt Count 115 L
Vital Signs:
Vital Signs
Temp Pulse Resp BP Pulse Ox
98.2 F 63 12 107/53 100
03/09/25 07:00 03/09/25 07:00 03/09/25 07:00 03/09/25 07:00 03/09/25 07:00
I&O
03/08/25 03/09/25 03/10/25
06:59 06:59 06:59
Intake Total 2280 / 2280
Balance 2280 / 2280
Physical Exam
-
General: Well Developed, Well Nourished, No Apparent Distress and Comfortable
HEENT: Normocephalic, Atraumatic, Moist Mucous Membranes, No Ptosis, PERRLA and Nose Appears Normal
Respiratory: Clear to Auscultation and Non Labored Respirations
Cardiac: Regular Rhythm and S1/S2
Breast: Deferred by me
GI: Soft, Nontender, Nondistended, Normal Bowel Sounds and Other (Surgical site clean)
Genito-urinary: No Costovertebral Tender
Musculoskeletal: No Clubbing, No Cyanosis and No Edema
Skin: Warm
Neuro: Awake, Alert, Oriented, AO x 3 and No Motor Deficits
Psych: Calm
Data Reviewed
-
Diagnostic Radiology: Image personally visualized and interpreted and Report Reviewed by me
CT Scan: Image personally visualized and interpreted and Report Reviewed by me
Ultrasound: Image personally visualized and interpreted and Report Reviewed by me
MRI: Image personally visualized and interpreted and Report Reviewed by me
Medical Tests (Nuc Med, Echo etc): Image personally visualized and interpreted and Report Reviewed by me
Labs: Labs Reviewed by me
Old Records: Reviewed
--- NOTE | 2025-03-09 11:27 | W.DCSUMMARY ---
Discharge Summary
Discharge Data
Date of Admission: 03/08/25
Date of Discharge: 03/09/25
-
Pending Results: No
Hospital Course
Hospital course
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
bloating and pain starting 3 days ago. Slightly worse in the right lower quadrant.
CT abdomen pelvis shows highly suggestive acute appendicitis pending
Status post lap appendectomy, feeling well after surgery, plan to discharge home today.
During hospitalization patient was treated from the following
Acute appendicitis
- CT abdomen pelvis with impression CT findings highly suggestive of appendicitis. No evidence of abscess or free intraperitoneal air.Coronary artery calcifications are present. Please correlate with symptoms of and risk factors for coronary artery
disease, with further workup as clinically appropriate.Cholelithiasis. No findings to suggest acute cholecystitis. No evidence of biliary ductal dilation.Bony degenerative changes as described.
03/09
Status post laparoscopic appendectomy.
Plan discharge home today
Type II diabetes
- Hold Farxiga and metformin and Januvia
- Sliding scale
# Essential hypertension
- Lisinopril continue with hold parameters
# Hyperlipidemia
- Crestor continued
# History of TIA
- Aspirin continued
# History of thrombocytopenia
# History of gallstone without a cholecystitis
# History of sleep apnea
- CPAP continued
# Anemia of chronic disease
- Hemoglobin stable 11.2
- No active bleeding
- Continue to monitor
CODE STATUS: Full code
DVT prophylaxis: Lovenox
Diet: DM diet
Family communication: Discussed with at bedside.
Disposition: Plan discharge home today
Total time spent on today's encounter was 40 minutes which included time spent in counseling the patient/family regarding diagnosis and treatment plan as listed above, goals of care, and symptom management. Case was discussed with nursing staff,
specialists, and care coordinators/case management. All labs and imaging personally reviewed by me. Remainder the time spent in detailed review of previous records, lab data, imaging, and other medical provider documentation.
Anticipated Discharge: Today
Discharge Plan
-
Patient Disposition: Home (Routine Discharge)
Discharge Diagnosis/Procedures: Acute appendicitis. Laparoscopic appendectomy
Condition: Good
Diet: As tolerated
Additional Diets: Eat small meals until your appetite returns
Activity: No strenuous activity
Additional Activity: do not lift over 15lbs for the next 2-3 weeks
Driving Restrictions: Wait until comfortable twisting/off narcotics
Bathing Restrictions: OK to Shower
Wound Care: Allow the glue to flake off your incisions on its own over the next 2-3 weeks. Beneath the glue are dissolving sutures. Avoid picking or scrubbing off.
Activity Restrictions/Additional Instructions:
Call your surgeon if you have nausea with vomiting, worsening abdominal pain or a fever >100.5
Referrals:
Carlos Rashid MD [Active, Surgical] - in two to three weeks
Mainor Escamilla MD [Family Provider, Internal Medicine]
Additional Discharge Medication Instructions: Hold Metformin for 48 hours.
Prescriptions:
New
polyethylene glycol 3350 17 gram Powder In Packet
17 g PO DAILYPRN PRN (Reason: constipation) Qty: 100 0RF
acetaminophen 325 mg Tablet
650 mg PO Q4HPRN PRN (Reason: mild pain/FRANKLIN/temp> 100.4F) Qty: 0 0RF
oxycodone 5 mg Tablet
5 mg PO Q4HPRN PRN (Reason: severe pain) Qty: 5 0RF
(DME) Stool softner
See Rx Instructions .ROUTE .MEDSUPPLY Qty: 1 0RF
Rx Instructions:
use miralax first, if not improvment Bisacodyl supp, if no BM then use Mag citrate.
Continued
aspirin 81 mg Tablet,Delayed Release (Dr/Ec)
81 mg PO DAILY
zinc sulfate 50 mg zinc (220 mg) Tablet
50 mg PO DAILY
ascorbic acid (vitamin C) [Vitamin C] 500 mg Tablet
500 mg PO DAILY
folic acid 1 mg Tablet
1 mg PO DAILY
lisinopril 2.5 mg Tablet
2.5 mg PO DAILY
rosuvastatin [Crestor] 40 mg Tablet
40 mg PO DAILY
cholecalciferol (vitamin D3) [Vitamin D3] 25 mcg (1,000 unit) Tablet
25 mcg PO DAILY
Januvia 100 mg Tablet
100 mg PO DAILY
magnesium oxide 400 mg magnesium Tablet
400 mg PO DAILY
dapagliflozin propanediol [Farxiga] 10 mg Tablet
10 mg PO DAILY
Held
metformin 1,000 mg Tablet
1,000 mg PO BID
Hold Instructions: Resume on 03/11/25.
Discharge Orders:
Discharge Patient (As Directed); Ordered 03/09/25
Ordered By: Enrique Sanabria
Discharge Date and Time
Print Language: CHINESE
[2025-03-09 12:28] VITALS: BP 92/59
[2025-03-09 13:52] LABS: Glycohemoglobin (HgbA1c) 7.5 % (4.0-5.6)
== END 2025-03-09 12:34 | disposition home or self-care (01) | DRG 399 ==
LOC: 2 SOUTH 15:55
PROVIDERS: Registered Nurse; ADMITTING PHYSICIAN Hospitalist; ATTENDING PHYSICIAN General Practice; CONSULT PHYSICIAN Surgery; EMERGENCY PHYSICIAN Student in an Organized Health Care Education/Training Program; FAMILY PHYSICIAN Internal Medicine
PROC: 0DTJ4ZZ Resection of Appendix, Percutaneous Endoscopic Approach (ICD-10-PCS; 2025-03-08)
DX: K35.80 Unspecified acute appendicitis (principal); E11.9 Type 2 diabetes mellitus without complications; K66.0 Peritoneal adhesions (postprocedural) (postinfection); E78.00 Pure hypercholesterolemia, unspecified; D69.6 Thrombocytopenia, unspecified; I25.10 Atherosclerotic heart disease of native coronary artery without angina pectoris; K80.20 Calculus of gallbladder without cholecystitis without obstruction; I10 Essential (primary) hypertension; D63.8 Anemia in other chronic diseases classified elsewhere; G47.33 Obstructive sleep apnea (adult) (pediatric); D56.3 Thalassemia minor; I45.10 Unspecified right bundle-branch block; Z86.73 Personal history of transient ischemic attack (TIA), and cerebral infarction without residual deficits; Z88.0 Allergy status to penicillin; Z79.82 Long term (current) use of aspirin; Z79.84 Long term (current) use of oral hypoglycemic drugs
CPT/HCPCS: 88304; 74177; 80053; 81003; 81015; 82962; 83036; 83690; 85025; 85027; 86803; 96361; 96365; 96375; 99284; Q9967

== ENCOUNTER 2025-06-18 06:21 | Day surgery (SDC) | payer MEDICARE, BC, SELFPAY ==
[2025-06-18 08:20] LABS: Glucose - Point of Care 134 mg/dl (70-99)
== END 2025-06-18 10:36 | disposition home or self-care (01) ==
LOC: GI 06:21
PROVIDERS: ATTENDING PHYSICIAN Specialist
DX: Z12.11 Encounter for screening for malignant neoplasm of colon (principal); K63.5 Polyp of colon; K29.50 Unspecified chronic gastritis without bleeding; K31.89 Other diseases of stomach and duodenum; R10.13 Epigastric pain; Z86.0101 Personal history of adenomatous and serrated colon polyps; Z87.19 Personal history of other diseases of the digestive system
CPT/HCPCS: 45385; 43239; 82962; 88305; 88342

== ENCOUNTER → 2025-08-10 08:20 | Outpatient (REF) | payer MEDICARE, BC, SELFPAY | LOC: RAD 08:20 | PROVIDERS: ATTENDING PHYSICIAN Internal Medicine | DX: R91.1 Solitary pulmonary nodule (principal) | CPT/HCPCS: 71250 ==